=== PATIENT | male | born 1975 | race Caucasian/White ===

== ENCOUNTER 2021-03-07 21:30 | Emergency (ER) | payer OTHER ==
[~2021-03-07] VITALS: Ht 167.6 cm; Wt 83.9 kg
[2021-03-07 22:55] LABS: ANION GAP 8 mmol/L (7-16); BUN 17 mg/dL (7-18); CALCIUM 8.4 mg/dL (8.5-10.1); CHLORIDE 104 mmol/L (98-107); CO2 25 mmol/L (21-32); GLUCOSE 126 mg/dL (74-106); SODIUM 137 mmol/L (136-145)
[2021-03-07 23:05] LABS: ALBUMIN 3.9 g/dL (3.4-5.0); SGOT 25 U/L (15-37); SGPT 35 U/L (30-65); TOTAL BILIRUBIN 0.4 mg/dL (0.2-1.0); TOTAL PROTEIN 7.4 g/dL (6.4-8.2); TROPONIN-I <0.06 ng/mL (<0.06)
[2021-03-07 23:18] LABS: BASOPHILS 1.1 % (0.0-2.0); EOSINOPHILS 4.1 % (0.0-3.0); HEMATOCRIT 44.7 % (42.0-52.0); LYMPHOCYTES 32.2 % (24.0-44.0); MCH 28.3 pg (26.0-34.0); MCHC 33.5 g/dL (28.0-37.0); MCV 84.5 fL (80.0-100.0); MONOCYTES 8.5 % (1.0-8.0); PLATELET COUNT 230 thou/uL (150-400); POLYS 54.1 % (36.0-66.0); RBC 5.29 mil/uL (4.50-6.00); RDW 14.2 % (10.5-14.5); WBC 12.9 thou/uL (4.0-11.0)
[2021-03-08] MEDS ORDERED: NEXIUM40 MG PO (01:38)
[2021-03-08 01:40] VITALS: BP 112/63
--- NOTE | 2021-03-08 14:51 | EKG ---
[address] [address] ELECTROCARDIOGRAM REPORT Name: ALVARO HASSAN Room #: DEP [facility]#: [id number] Admission: 03/07/21 Attend Phys: Discharge: 03/08/21 Date of : 75 Report #: [id number] [facility] ED Test Date: 2021-03-07 Test Time: 21:36:08 Pat Name: ALVARO WILSON Department: Room: Gender: [employer] Supervisor: denise : 1975 Requested By: Senait Moses Order Number: [id number] MD: Obinna Lott Measurements Intervals [place] Rate: 67 P: 40 [place]: 157 QRS: -9 QRSD: 105 T: 14 QT: 384 QTc: 406 Interpretive Statements Sinus rhythm No previous ECG available for comparison Electronically Signed On 03-08-2021 14:51:25 CDT by Obinna Lott [email or web address] <ELECTRONICALLY SIGNED> By: Obinna Lott MD 03/08/21 1451 [id number] Obinna Lott MD /JUAN
== END 2021-03-08 01:58 | disposition home or self-care (01) ==
LOC: ER 21:30
PROVIDERS: Nurse Practitioner Family
DX: R07.9 Chest pain, unspecified (principal); F17.210 Nicotine dependence, cigarettes, uncomplicated